=== PATIENT | male | born 1950 | race Caucasian/White ===

== ENCOUNTER 2016-10-02 05:33 | Day surgery (SDC) | payer OTHER ==
[~2016-10-02] VITALS: Ht 175.3 cm; Wt 103.0 kg
[~2016-10-02 05:33] MED LIST: AUGMENTIN875 MG PO; CLARITIN DPS10 MG PO; DELTASONE DPS10 MG PO; DEPAKOTE ER500 MG PO; DUONEB DPS3 ML IH; LEXAPRO DPS20 MG PO; MEVACOR20 MG PO; NORVASC5 MG PO; SYMBICORT80 MCG/6.9 IH; THERA1 EACH PO; TYLENOL DPS325 MG PO
--- NOTE | 2016-10-02 17:13 | OR ---
ADMIT: 10/02/2016 RM/LOC: [facility] MR#: [id number] [address] [address] [place] [address] Operative/Delivery Room Report SEX: M AGE: 65 : 1950 SURGERY DATE: 10/02/2016 SURGEON: Galen Penaloza MD PROCEDURE: Bronchoscopy post bronchoalveolar lavage. 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 POSTOPERATIVE DIAGNOSES: 1. 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 2. Evidence of intact left upper lobe resection. 3. Moderate amount of plugging noted in the left lower lobe. 4. 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 PROCEDURE IN DETAIL: After the patient was brought to the operating room in a typical fashion, the patient was put to sleep with an LMA. Anesthesia did deep sedation protocol with an inhaled gas. Following appropriate positioning of the LMA, the patient was then seated in upright position after time out was performed. The patient was intubated transorally through the existing LMA. Following this, we then noted the vocal cords seemed to have sail of the left vocal cord. I was able to place the bronchoscope into the airway. There was a fair amount of convolution to the airway itself. Following the placement of airway, we were then able to suction out several plugs, lavage was carried out in the left lower lobe. Seemed to have more plugs than on the right. Right upper lobe, middle, and lower lobe were subsegmental orifices appeared to be normal. Left upper lobe lingula appears to have resected the left upper lobe. Lingula and left lower lobe had multiple convolution and plugs. It appeared to be compressed. There was whitish type of plug. No yellow. No purulent material was seen. Vigorous lavage with 100 mL of saline was used to lavage this area and he tolerated this remarkable well, discharged in satisfactory condition. Galen Penaloza MD/ jaqui JOB #: [id number] CC: Galen Penaloza MD, Attending Physician Minesh Kelsey MD, Family Physician
== END 2016-10-02 10:00 | disposition home or self-care (01) ==
LOC: SSS 05:33
PROC: 0B9B8ZX Drainage of Left Lower Lobe Bronchus, Via Natural or Artificial Opening Endoscopic, Diagnostic (ICD-10-PCS; principal; 2016-10-02)
DX: J98.09 Other diseases of bronchus, not elsewhere classified (principal); J38.01 Paralysis of vocal cords and larynx, unilateral; J44.9 Chronic obstructive pulmonary disease, unspecified; I10 Essential (primary) hypertension; Z87.891 Personal history of nicotine dependence; I25.10 Atherosclerotic heart disease of native coronary artery without angina pectoris; E11.9 Type 2 diabetes mellitus without complications; E78.00 Pure hypercholesterolemia, unspecified; Z79.82 Long term (current) use of aspirin; Z79.899 Other long term (current) drug therapy; Z88.6 Allergy status to analgesic agent; Z98.890 Other specified postprocedural states; Z88.2 Allergy status to sulfonamides

== ENCOUNTER 2016-10-08 07:08 | Day surgery (SDC) | payer OTHER ==
[~2016-10-08] VITALS: Ht 175.3 cm; Wt 99.5 kg
--- NOTE | 2016-11-04 10:44 | OR ---
ADMIT: 10/08/2016 RM/LOC: [facility] MR#: [id number] [address] [address] [place] [address] Operative/Delivery Room Report SEX: M AGE: 65 : 1950 SURGERY DATE: 10/08/2016 SURGEON: Oneil Mendoza MD PREOPERATIVE DIAGNOSIS: Recent left upper lobe lobectomy with pulmonary hygiene issues and difficulty clearing secretions. POSTOPERATIVE DIAGNOSIS: Recent left upper lobe lobectomy with pulmonary hygiene issues and difficulty clearing secretions. PROCEDURE PERFORMED: Bronchoscopy with lavage. ANESTHESIA: General endotracheal. ESTIMATED BLOOD LOSS: None. DESCRIPTION OF PROCEDURE: After appropriate informed consent was obtained, the patient was brought to the operating room. General endotracheal anesthesia was induced with a LMA. Bronchoscope was then introduced through the LMA, the vocal cords actually appeared pretty normal. There was not the same leukoplakia that was described previously. The trachea appeared okay, there was a little bit of secretions at the adali, this was suctioned out. The right mainstem bronchus and the distal bronchi appeared normal. On the left side though the left mainstem bronchus was somewhat kinked and especially as it went into the left lower lobe bronchus, it was somewhat twisted and kinked and in fact, it was difficult to even get down past this kinked area. There was some inflammation and erythema there and some secretions in that left lower lobe bronchus. I was able to lavage with saline and irrigate and suction this out. There did not appear to be any pus or purulent fluid, no bloody fluid. All the saline was suctioned out. The staple line appeared intact going to the left upper lobe bronchus. The scope was pulled back. I checked the right side again, I actually lavaged out a little bit of the debris on the right side but again, that side appeared normal. Once I was satisfied that all the saline and secretions suctioned out, the bronchoscope was removed without apparent complications. He tolerated the procedure well and was taken to the recovery room in stable condition. Oneil Mendoza MD/ jaqui JOB #: [id number] CC: Oneil Mendoza MD, Attending Physician Minesh Kelsey MD, Family Physician Jp Patton MD
== END 2016-10-08 14:16 | disposition home or self-care (01) ==
LOC: SSS 07:08
PROC: 0B9B8ZX Drainage of Left Lower Lobe Bronchus, Via Natural or Artificial Opening Endoscopic, Diagnostic (ICD-10-PCS; principal; 2016-10-08)
DX: J98.8 Other specified respiratory disorders (principal); I10 Essential (primary) hypertension; E11.9 Type 2 diabetes mellitus without complications; J44.9 Chronic obstructive pulmonary disease, unspecified; E66.9 Obesity, unspecified; K21.9 Gastro-esophageal reflux disease without esophagitis; Z87.891 Personal history of nicotine dependence; M19.90 Unspecified osteoarthritis, unspecified site; Z88.2 Allergy status to sulfonamides; Z88.6 Allergy status to analgesic agent; Z88.8 Allergy status to other drugs, medicaments and biological substances; Z79.899 Other long term (current) drug therapy

== ENCOUNTER 2016-10-16 11:35 | Day surgery (SDC) | payer OTHER ==
[~2016-10-16] VITALS: Ht 175.3 cm; Wt 97.0 kg
--- NOTE | 2016-11-04 10:45 | OR ---
ADMIT: 10/16/2016 RM/LOC: [facility] MR#: [id number] [facility] [address] [place] [id number] [place] [address] Operative/Delivery Room Report SEX: M AGE: 66 : 1950 SURGERY DATE: 10/16/2016 SURGEON: Oneil Mendoza MD PREOPERATIVE DIAGNOSIS: Retained secretions status post lobectomy. POSTOPERATIVE DIAGNOSIS: Minimal amount of secretions particularly in the left lower lobe. PROCEDURE PERFORMED: Bronch with lavage. ANESTHESIA: General endotracheal. ESTIMATED BLOOD LOSS: None. DESCRIPTION OF PROCEDURE: After appropriate informed consent was obtained, the patient was brought to the operating room. General endotracheal anesthesia was induced with LMA. Bronchoscope was introduced down through the LMA. Vocal cords appeared normal, really no leukoplakia or any concerning findings. The scope was advanced through the vocal cords. I did spray the vocal cords with some 2% lidocaine. The scope was then advanced through the vocal cords, and the trachea appeared normal. At the adali, there were some secretions that were suctioned out. I inspected the right side first, really the right mainstem and his distal bronchi all appeared normal. The scope was then pulled back, and I went to the left side. The staple line at the left upper lobe bronchus was a little more friable at this time than it was a week or so ago. So, even just touching it with a scope caused it to bleed. Things were still pretty tightly shut. As I tried to go in the left lower lobe, I had to kind of push through and pass the area of little bit of a twist and a pinch, but I was able to get down the left lower lobe bronchus. I instilled some saline down there, lavaged out the left lower lobe, and suctioned all this fluid back out. Again, really there was very minimal for secretions, so not much needed to be lavaged or suctioned out. Once I was satisfied with this, the scope was then withdrawn. The patient tolerated the procedure well and was taken to the recovery room in stable condition. Oneil Mendoza MD/ jaqui JOB #: [id number] CC: Oneil Mendoza MD, Attending Physician Minesh Kelsey MD, Family Physician Jose Baltazar
== END 2016-10-16 15:35 | disposition home or self-care (01) ==
LOC: SSS 11:35
PROC: 0B9J8ZX Drainage of Left Lower Lung Lobe, Via Natural or Artificial Opening Endoscopic, Diagnostic (ICD-10-PCS; principal; 2016-10-16)
DX: J98.4 Other disorders of lung (principal); I10 Essential (primary) hypertension; I25.2 Old myocardial infarction; J44.9 Chronic obstructive pulmonary disease, unspecified; Z88.2 Allergy status to sulfonamides; Z88.8 Allergy status to other drugs, medicaments and biological substances; Z98.890 Other specified postprocedural states

== ENCOUNTER 2016-10-26 10:29 | Day surgery (SDC) | payer OTHER ==
[~2016-10-26] VITALS: Ht 175.3 cm; Wt 100.8 kg
--- NOTE | 2016-11-04 10:45 | OR ---
ADMIT: 10/26/2016 RM/LOC: [facility] MR#: [id number] [address] [address] [place] [address] Operative/Delivery Room Report SEX: M AGE: 66 : 1950 SURGERY DATE: 10/26/2016 SURGEON: Oneil Mendoza MD PREOPERATIVE DIAGNOSIS: Recurrent excessive secretions after left upper lobe lobectomy, need for repeat bronchial lavage. POSTOPERATIVE DIAGNOSIS: 1. Lot of secretions in the left mainstem bronchus, completely occluding that bronchus with mucus plugging. 2. Question of partial disruption of the left upper lobe bronchus staple line. PROCEDURE PERFORMED: Bronchoscopy with lavage. ANESTHESIA: General endotracheal. ESTIMATED BLOOD LOSS: None. DESCRIPTION OF PROCEDURE: After appropriate informed consent was obtained, the patient was brought to the operating room. General endotracheal anesthesia was induced with LMA. Bronchoscope was introduced. I sprayed the vocal cords with 2% lidocaine. The scope was passed down through the vocal cords. The trachea appeared normal. There was obvious nola pooling of mucus debris and secretions in the left mainstem, completely occluding the left mainstem. I suctioned out the right side first and there is just a little bit of saliva and secretions there that were easily suctioned out but in the left side, the secretions were much more tenacious and thick. It took a while to suction the secretions out of the left mainstem. There was also more swelling and inflammation at this time around, so it was very difficult to get past this swelling down into the left lower lobe bronchus. I was able to just gently pop through that area and lavage this out with a couple of syringes of saline and suctioned out all the secretions. I then inspected the staple line of the left upper lobe bronchus and there appeared to be question of a partial disruption of the staple line. I did not push hard or did not want to make that any worse, so I just took a quick picture and then pull back. Once I was satisfied and had all the secretions suctioned out, the bronchoscope was removed. The patient tolerated the procedure well and was taken to the recovery room in stable condition. Chest x-ray is pending. Oneil Mendoza MD/ jaqui JOB #: [id number] CC: Oneil Mendoza MD, Attending Physician Minesh Kelsey MD, Family Physician ADMIT: 10/26/2016 RM/LOC: [facility] MR#: [id number] [address] [place] [id number] [address] [place] [address] Operative/Delivery Room Report SEX: M AGE: 66 : 1950 Jose Baltazar
== END 2016-10-26 14:05 | disposition home or self-care (01) ==
LOC: SSS 10:29
PROC: 0B9G8ZX Drainage of Left Upper Lung Lobe, Via Natural or Artificial Opening Endoscopic, Diagnostic (ICD-10-PCS; principal; 2016-10-26)
DX: J98.09 Other diseases of bronchus, not elsewhere classified (principal); I10 Essential (primary) hypertension; J44.9 Chronic obstructive pulmonary disease, unspecified; E66.9 Obesity, unspecified; Z88.2 Allergy status to sulfonamides; Z88.8 Allergy status to other drugs, medicaments and biological substances; Z79.82 Long term (current) use of aspirin; Z85.118 Personal history of other malignant neoplasm of bronchus and lung; Z79.899 Other long term (current) drug therapy